=== PATIENT | female | born 1980 | race Caucasian/White ===

== ENCOUNTER 2018-06-29 13:00 | Outpatient (CLI) | payer BC ==
[2018-06-29 11:12] LABS: #Basophils 0.1 thou/uL (0.0-0.2); #Eosinphils 0.1 thou/uL (0.0-0.7); #Lymphocytes 1.7 thou/uL (1.20-3.40); #Monocytes 0.4 thou/uL (0.11-0.59); #Neutrophils 3.1 thou/uL (1.40-6.50); %Basophils 1.4 % (0.0-1.0); %Eosinophils 2.7 % (0.0-10.0); %Lymphocytes 32.2 % (21.0-51.0); %Monocytes 6.7 % (0.0-10.0); %Neutrophils 57.1 % (42.0-75.0); Hemoglobin 14.3 g/dL (12.0-16.0); Mean Corpuscular HGB CONC 35.1 g/dL (32.0-36.0); Mean Corpuscular Hemoglobin 33.8 pg (27.0-31.0); Mean Corpuscular Volume 96.4 fL (78.0-98.0); Mean Platelet Volume 7.6 fL (7.4-10.4); Platelet Count 216 thou/uL (130-400); RBC Distribution Width 11.2 % (11.5-14.5); Red Blood Cell (RBC) Count 4.23 mill/uL (4.20-5.40); White Blood Cell (WBC) Count 5.4 thou/uL (4.8-10.8)
[2018-06-29 11:23] LABS: Anion Gap 13 mmol/L (10-20); BUN (Urea Nitrogen) 10 mg/dL (7.0-18.7); Calc. Creatinine Clearance 0 mL/min (70-130); Calcium 9.8 mg/dL (7.8-10.44); Carbon Dioxide 19 mmol/L (22-29); Chloride 111 mmol/L (98-107); Estimated GFR-MDRD 79; Glucose 88 mg/dL (70-105); Potassium 3.9 mmol/L (3.5-5.1); Sodium 139 mmol/L (136-145)
== END 2018-06-29 13:01 | disposition home or self-care (01) ==
LOC: LABBT 13:00
PROVIDERS: ATTEND Surgery
DX: Z01.812 Encounter for preprocedural laboratory examination (principal); K64.8 Other hemorrhoids
CPT/HCPCS: 80048; 85025

== ENCOUNTER 2018-07-02 11:42 | Day surgery (SDC) | payer BC ==
[2018-06-29 10:06] VITALS: BMI 22.8
[2018-07-02] MEDS ORDERED: CEFAZOLIN/Water 2 GM/20 ML SYRINGE ONE (12:03)
[2018-07-02] MEDS ORDERED: Midazolam HCl 2 mg/2 ml Vial ONE (12:03)
[2018-07-02] MEDS ORDERED: Fentanyl 100 MCG/2 ML VIAL ONE ×2 (12:24→14:56)
[2018-07-02] MEDS ORDERED: Lidocaine 2% Jelly 5 ML TUBE ONE (12:45)
[2018-07-02] MEDS ORDERED: Lidocaine 2% 10 ML INJ ONE (12:45)
[2018-07-02] MEDS ORDERED: Bupivacaine/Epinephrine 0.25% 30 ML VIAL ONE (12:45)
[2018-07-02] MEDS ORDERED: Sodium Chloride 0.9% 100 ML ONE (13:07)
[2018-07-02] MEDS ORDERED: cefOXitin 2 GM VIAL ONE (13:07)
[2018-07-02] MEDS ORDERED: Meperidine HCl/PF 25 MG/ML VIAL ONE (14:18)
[2018-07-02] MEDS ORDERED: Dexamethasone 20 MG/5 ML VIAL ONE (14:28)
[2018-07-02] MEDS ORDERED: Glycopyrrolate 0.2 MG/ML 5 ML SYRINGE ONE (14:28)
[2018-07-02] MEDS ORDERED: Ketorolac Tromethamine 30 MG/ML VIAL ONE (14:28)
[2018-07-02] MEDS ORDERED: Lidocaine 1% PF 5 ML VIAL ONE (14:28)
[2018-07-02] MEDS ORDERED: PROPOFOL 200 MG/20 ML VIAL ONE (14:28)
[2018-07-02] MEDS ORDERED: Ondansetron HCl/PF 4 MG/2 ML Vial ONE (14:28)
--- NOTE | 2018-07-03 09:47 | OP ---
DATE OF PROCEDURE: 07/02/2018 PREOPERATIVE DIAGNOSES: 1. Prolapsing internal hemorrhoids. 2. External hemorrhoids. POSTOPERATIVE DIAGNOSES: 1. Prolapsing internal hemorrhoids. 2. External hemorrhoids. PROCEDURES PERFORMED: 1. PPH stapled hemorrhoidectomy. 2. External hemorrhoidectomy x2. SURGEON: Dr. Pyle. ANESTHESIA: General. ESTIMATED BLOOD LOSS: Minimal. COMPLICATIONS: None. SPECIMEN: Hemorrhoids. PROCEDURE IN DETAIL: The patient had undergone mechanical bowel prep, she was taken to the operating room and placed supine on the table. After general anesthetic was obtained, she was placed in the p tish position. Her buttock crease is taped open and her perineum, anal area was prepped and draped i n a sterile fashion. Anal exam reveals no obvious anal canal mass. The obturator and sphincter prot frederick was placed in the usual fashion and sewn to the perianal skin using silk. This completely prot ected the sphincter complex. There was some very enlarged and inflamed appearing external hemorrhoid s. A 2-0 purse-string of Prolene is placed 2 cm above the dentate line using the suture assist devic e. The stapler was opened to its fullest extent. The anvil was placed above the purse-string. The ends of the purse-anthony are pulled through the stapler and held under tension. Stapler is tighten ed down into the green zone. Finger exam of the vagina revealed the posterior wall, not to be involv ed. The stapler is fired. There is good ring of tissue. There was no bleeding on the staple line. There were residual 2 external hemorrhoids that were removed then with the small LigaSure without bl eeding. Anal canal was packed with Gelfoam and lidocaine jelly. The patient was en route to recover y in stable condition. All instrument counts, needle counts, lap counts were correct.
== END 2018-07-02 16:11 | disposition home or self-care (01) ==
LOC: SDC 11:42
PROVIDERS: ATTEND Surgery
PROC: 06BY3ZC Excision of Hemorrhoidal Plexus, Percutaneous Approach (ICD-10-PCS; principal; 2018-07-02)
DX: K64.8 Other hemorrhoids (principal); K64.4 Residual hemorrhoidal skin tags
CPT/HCPCS: 88304; 96374; J0694; J1100; J1885; J2001; J2175; J2250; J2405; J2704; J3010; J7050